=== PATIENT | female | born 1945 | race Hispanic/Latino ===

== ENCOUNTER 2017-03-09 21:36 | Emergency (ER) | payer MEDICARE, OTHER ==
[2017-03-09 21:59] VITALS: BP 160/80; PULSE 80; RESP 14; TEMP 97.7; O2SAT 98
--- NOTE | 2017-03-09 22:09 | C.PDOC ---
History Of Present Illness 71 year old female presents to the ER with a complaint of recurrent sores in her mouth for the past few months. Patient was seen by her PMD who reassured her , however, patient is concerned since they are recurrent. Denies mouth pain or bleeding. Time Seen by Provider: 03/09/17 21:50 Chief Complaint (Nursing): Dental Pain History Per: Patient History/Exam Limitations: no limitations Onset/Duration Of Symptoms: Days Current Symptoms Are (Timing): Still Present Recent travel outside of the [place]: No Past Medical History Reviewed: Historical Data, Nursing Documentation, Vital Signs Vital Signs: Last Vital Signs Temp 97.7 F 03/09/17 21:39 Pulse 80 03/09/17 21:39 Resp 14 03/09/17 21:39 BP 160/80 H 03/09/17 21:39 Pulse Ox 98 03/10/17 01:35 - Medical History PMH: HTN, Hypercholesterolemia Surgical History: Cholecystectomy Family History: States: Unknown Family Hx - Social History Hx Alcohol Use: No Hx Substance Use: No - Immunization History Hx Tetanus Toxoid Vaccination: No Hx Influenza Vaccination: Yes Hx Pneumococcal Vaccination: Yes Review Of Systems Constitutional: Negative for: Fever, Chills ENT: Positive for: Other (Oral lesions). Negative for: Mouth Pain, Mouth Swelling, Throat Pain Physical Exam - Physical Exam Appears: Non-toxic, No Acute Distress Skin: Normal Color, Warm, Dry Head: Atraumatic, Normacephalic Eye(s): bilateral: Normal Inspection, EOMI Oral Mucosa: Moist, Other (1 small localized red blood filled appearing pimple to buccal mucosa of left cheek.) Tongue: Normal Appearing Lips: Normal Appearing Gingiva: Normal Appearing, No Other (Lesions) Throat: Normal, No Erythema, No Exudate, No Other (Lesions) ED Course And Treatment O2 Sat by Pulse Oximetry: 98 (Room air) Pulse Ox Interpretation: Normal Progress Note: Patient advised to follow up with oral surgeon for evaluation to rule out cancer. Disposition Counseled Patient/Family Regarding: Diagnosis, Need For Followup, Rx Given - Disposition Referrals: Elvia Ann DMD [Staff Provider] - Disposition: HOME/ ROUTINE Disposition Time: 22:06 Condition: STABLE Additional Instructions: Please follow up with PMD or oral surgeon Return to ER if worse Forms: General Discharge Instructions, [email or web address] (Kyrgyz) - Clinical Impression Clinical Impression: Mouth sores, Cheek biting - Scribe Statement The provider has reviewed the documentation as recorded by the Scribe Darian Bobby All medical record entries made by the Scribe were at my direction and personally dictated by me. I have reviewed the chart and agree that the record accurately reflects my personal performance of the history, physical exam, medical decision making, and the department course for this patient. I have also personally directed, reviewed, and agree with the discharge instructions and disposition.
== END 2017-03-09 22:20 | disposition home or self-care (01) ==
LOC: C.ER 21:36
DX: K13.70 Unspecified lesions of oral mucosa (principal); K13.1 Cheek and lip biting